=== PATIENT | male | born 1960 | race Caucasian/White ===

== ENCOUNTER 2019-10-11 18:37 | Inpatient (IN) | payer MEDICARE, BC ==
[~2019-10-11] VITALS: Ht 177.8 cm; Wt 106.8 kg
[2019-10-11] MEDS ORDERED: ACETAMINOPHEN 325 MG TABLET. PO ONE (19:30)
[2019-10-11] MEDS ORDERED: IV NORMAL SALINE 500ML BAG 500 ML IV ONE (19:30)
[2019-10-11] MEDS ORDERED: diphenhydrAMINE 50 MG/ML VIAL IVP ONE (19:30)
--- NOTE | 2019-10-11 19:37 | PHYS DOC ---
Past Medical History Past Medical History: Renal Disease Additional Past Medical Histor: HX OF 2 KIDNEY TRANSPLANTS Past Medical History Prostate cancer, end-stage renal disease, renal transplant Past Surgical History: No Surgical History Additional Past Surgical Histo: Ileal conduit construction, exploratory laparotomy, renal transplant x2 Smoking Status: Never Smoker Alcohol Use: Heavy General Adult EDM: Chief Complaint: FEVER HPI: HPI: Patient is a 59 year old male who presents with fever. Patient reports that fo r the last 2 days he has felt poorly. He thinks it started on Tuesday evening but definitely by Tuesday he was experiencing chills generalized muscle aches and weakness with a decrease in appetite. He reports that about 3 weeks ago he was in [facility] when he became uroseptic and was treated for 3 days with IV antibiotics and released. Patient reports he took a 10-day course of antibiotics. Patient reports he has never been contacted by that facility since discharge. Patient reports he does have some chest discomfort that started around noon today. He describes it as a tightness across his chest that he states he has never had before. He denies any shortness of breath, cough, change in smell or taste sore throat or runny nose. He also denied any abdominal pain, back pain diarrhea, melena or hematochezia, hematemesis. Patient also denied any new rashes. Review of Systems: Review of Systems: Constitutional: See HPI [] Eyes: Denies change in visual acuity. [] HENT: Denies nasal congestion or sore throat. [] Respiratory: Denies cough or shortness of breath. [] Cardiovascular: See HPI. [] GI: Denies abdominal pain, nausea, vomiting, bloody stools or diarrhea. [] : Denies dysuria. [] Musculoskeletal: Denies back pain or joint pain. [] Integument: Denies rash. [] Neurologic: Denies headache, focal weakness or sensory changes. [] Endocrine: Denies polyuria or polydipsia. [] Lymphatic: Denies swollen glands. [] Psychiatric: Denies depression or anxiety. [] Heart Score: Risk Factors: Risk Factors: DM, Current or recent (<one month) smoker, HTN, HLP, family history of CAD, obesity. Risk Scores: Score 0 - 3: 2.5% MACE over next 6 weeks - Discharge Home Score 4 - 6: 20.3% MACE over next 6 weeks - Admit for Clinical Observation Score 7 - 10: 72.7% MACE over next 6 weeks - Early Invasive Strategies Physical Exam: PE: Constitutional: Well developed, well nourished, no acute distress, non-toxic appearance. [] HENT: Normocephalic, atraumatic, bilateral external ears normal, oropharynx moist, no oral exudates, nose normal. [] Eyes: PERRLA, EOMI, conjunctiva normal, no discharge. [] Neck: Normal range of motion, no tenderness, supple, no stridor. No bruit, no 3 cm of JVD at 60 degrees [] Cardiovascular:Heart rate regular rhythm, grade 2/6 systolic murmur, no shift of PMI, pulses 1 out of 2 of the dorsalis pedis bilaterally [] Lungs & Thorax: Bilateral breath sounds clear to auscultation [] Abdomen: Bowel sounds normal, soft, no tenderness, no masses, no pulsatile masses. Ileal conduit bag in the left lower quadrant full of clear appearing urine.[] Skin: Warm, dry, no erythema, no rash. [] Back: No tenderness, no CVA tenderness. [] Extremities: No tenderness, no cyanosis, no clubbing, ROM intact, symmetric pitting edema bilaterally [] Neurologic: Alert and oriented X 3, normal motor function, normal sensory function, no focal deficits noted. [] Psychologic: Affect normal, judgement normal, mood normal. [] Current Patient Data: Vital Signs: Vital Signs Date Time Temp Pulse Resp B/P (MAP) Pulse Ox O2 Delivery O2 Flow Rate FiO2 10/11/19 19:05 102.0 98 20 175/85 (115) 98 Room Air 102.0 EKG: EKG: Heart rate 94 bpm, possible left atrial enlargement, normal axis, normal intervals, abnormal ECG [] Radiology/Procedures: Radiology/Procedures: [] Course & Med Decision Making: Course & Med Decision Making Pertinent Labs and Imaging studies reviewed. (See chart for details) 2126-the patient was seen and reevaluated. I discussed the case with the admitting physician. I discussed all pertinent CT, x-ray, laboratory and history and physical data. [] Dragon Disclaimer: Dragon Disclaimer: This electronic medical record was generated, in whole or in part, using a voice recognition dictation system. Departure Departure Impression: Primary Impression: Acute PN (pyelonephritis) Additional Impressions: SIRS (systemic inflammatory response syndrome) Renal transplant recipient Disposition: ADMITTED INPATIENT Condition: GUARDED Referrals: UNKNOWN PCP NAME (PCP) Justicifation of Admission Dx: Justifications for Admission: Justification of Admission Dx: Yes Sepsis: Bacteremia VERONA TORRES MD Oct 11, 2019 19:37
--- NOTE | 2019-10-11 20:14 | RAD ---
Single view chest dated 10/11/2019. COMPARISON: None. Clinical data indication: Chest pain. FINDINGS: single upright portable exam performed. Heart and mediastinal contours within normal limits. There is some patchy airspace disease at both lung bases. There is also some soft tissue density at the medial right lung apex. Calcified granuloma the right mid zone. No pleural effusion or pneumothorax. IMPRESSION: 1. Patchy bibasilar airspace disease, atelectasis versus early pneumonia. 2. Soft tissue density at the medial right apex most likely represents vascular shadow, although an underlying mass or pleural thickening is not excluded. Suggest a follow-up PA and lateral exam for better evaluation. Electronically signed by: Victor Manuel Hinton MD (10/11/2019 8:10 PM) MAIA
[2019-10-11 20:16] LABS: BILIRUBIN,URINE NEGATIVE (NEG); CLARITY,URINE CLEAR; COLOR,URINE YELLOW; NITRITE,URINE POSITIVE (NEG); PROTEIN,URINE 30 mg/dL (NEG-TRACE); UROBILINOGEN,URINE 0.2 mg/dL (0.2 mg/dL)
[2019-10-11 20:20] LABS: BACTERIA,URINE MANY /HPF (0-FEW); SQUAMOUS EPITHELIAL CELL,UR FEW /LPF; WBC,URINE 20-40 /HPF (0-4)
[2019-10-11 20:25] LABS: BASO % 0 % (0-3); EOS % 0 % (0-3); HEMATOCRIT 38.6 % (39.0-53.0); HEMOGLOBIN 12.9 g/dL (13.0-17.5); LYMPH # 0.4 x10^3/uL (1.0-4.8); LYMPH % 6 % (24-48); MEAN CORPUSCULAR HEMOGLOBIN 30 pg (25-35); MEAN CORPUSCULAR HGB CONC 33 g/dL (31-37); MEAN CORPUSCULAR VOLUME 90 fL (79-100); MONO # 0.6 x10^3/uL (0.0-1.1); MONO % 8 % (0-9); NEUT # 6.5 x10^3/uL (1.8-7.7); NEUT % 86 % (31-73); PLATELET COUNT 189 x10^3/uL (140-400); RED BLOOD COUNT 4.27 x10^6/uL (4.30-5.70); RED CELL DISTRIBUTION WIDTH 13.7 % (11.5-14.5); WHITE BLOOD COUNT 7.6 x10^3/uL (4.0-11.0)
[2019-10-11 20:36] LABS: CALCIUM 9.1 mg/dL (8.5-10.1); CREATININE 1.6 mg/dL (0.7-1.3); GFR 44.5; POTASSIUM 4.9 mmol/L (3.5-5.1)
[2019-10-11 20:40] LABS: ALBUMIN 3.3 g/dL (3.4-5.0); ALBUMIN/GLOBULIN RATIO 0.9 (1.0-1.7); TOTAL BILIRUBIN 0.7 mg/dL (0.2-1.0); TOTAL PROTEIN 7.1 g/dL (6.4-8.2)
[2019-10-11 20:56] LABS: PROTHROMBIN TIME PATIENT 14.6 SEC (11.7-14.0)
[2019-10-11 20:58] LABS: % BANDS 7 % (0-9); % LYMPHS 5 % (24-48); % MONOS 5 % (0-10); % SEGS 83 % (35-66); PLT ESTIMATE ADEQUATE (ADEQUATE)
--- NOTE | 2019-10-11 20:58 | RAD ---
Exam: CT of abdomen and pelvis without contrast INDICATION: Fever with history of ileal conduit TECHNIQUE: Sequential axial images through the abdomen and pelvis obtained without IV contrast. Sagittal and coronal reformatted images were reconstructed from the axial data and reviewed. Comparisons: None FINDINGS: Heart size is normal. No pericardial strandy opacities at the left lung base likely atelectasis. No pleural effusion. Evaluation of the solid organs is limited secondary to noncontrast technique. Liver, spleen, pancreas, gallbladder and adrenals are unremarkable. Left kidney is markedly atrophic. Right kidney is absent. There is a left lower quadrant transplant kidney which demonstrates mild hydronephrosis and perinephric stranding. No hydroureter is identified. Large bowel demonstrate diverticulosis of the sigmoid colon. Gastric banding device noted at the stomach. Postsurgical changes of ileal conduit is seen. No free intra-abdominal air or fluid. No obstruction. Abdominal aorta has a normal course and caliber. No enlarged intra-abdominal lymph nodes are identified. No suspicious osseous lesions or acute fractures. IMPRESSION: Mild left-sided lower quadrant transplant kidney hydronephrosis and perinephric stranding. An obstructing stone is not identified. Consider ultrasound for further evaluation. Exposure: One or more of the following in the visualized dose reduction techniques were utilized for this examination: 1. Automated exposure control 2. Adjustment of the MA and/or KV according to patient size 3. Use of iterative of reconstructive technique Electronically signed by: Justice Flynn MD (10/11/2019 8:55 PM) [id number]
[2019-10-11 21:05] LABS: D-DIMER 0.27 ug/mlFEU (0.00-0.50)
[2019-10-11] MEDS ORDERED: IV NORMAL SALINE 1000ML BAG 1,000 ML IV SCH (21:45)
[2019-10-11] MEDS ORDERED: ACETAMINOPHEN 325 MG TABLET. PO PRN (21:45)
[2019-10-12] VITALS (8 sets, daily range): BP systolic 118–173; BP diastolic 59–83
[2019-10-12] MEDS ORDERED: TACR1CAP2 PO (00:50)
[2019-10-12] MEDS ORDERED: TACR1CAP5 PO (00:50)
[2019-10-12] MEDS ORDERED: VENL37.57 PO (00:50)
[2019-10-12] MEDS ORDERED: METO-239 PO (01:38)
[2019-10-12] MEDS ORDERED: ACET-1797 PO (01:38)
[2019-10-12] MEDS ORDERED: MYCO180T PO (01:38)
[2019-10-12] MEDS ORDERED: ATOR10TA60 PO (01:38)
[2019-10-12] MEDS ORDERED: FAMO20TA5 PO (01:38)
[2019-10-12] MEDS ORDERED: APIX5TAB PO (01:38)
[2019-10-12] MEDS ORDERED: MELA3TAB4 PO (01:38)
[2019-10-12] MEDS ORDERED: ENOXAPARIN 40 MG/0.4 ML SYRINGE. SQ SCH (10:00)
--- NOTE | 2019-10-12 10:01 | EKG ---
[facility] [address] [place] [address] Test Date: 2019-10-11 Test Time: 19:49:50 Pat Name: XOCHITL BAEZ Department: Room: Gender: M Bilingual Recruiter: : [id number] Requested By: VERONA TORRES Order Number: [id number] Reading MD: Measurements Intervals [place] Rate: 94 P: 40 PA: 134 QRS: 9 QRSD: 90 T: 25 QT: 324 QTc: 410 Interpretive Statements SINUS RHYTHM LEFT ATRIAL ABNORMALITY ABNORMAL ECG RI6.01 No previous ECG available for comparison
[2019-10-12] MEDS: FAMOTIDINE 20 MG TABLET. PO SCH ×2 (10:21→21:06)
[2019-10-12] MEDS: APIXABAN 5 MG TABLET. PO SCH ×2 (10:22→21:07)
[2019-10-12] MEDS: VENLAFAXINE XR 37.5 MG CAP.ER.24H. PO SCH (10:22)
[2019-10-12] MEDS: MYCOPHENOLATE ACID 180 MG TABLET.DR. PO SCH ×2 (10:23→21:07)
[2019-10-12] MEDS: TACROLIMUS 0.5 MG CAPSULE. PO SCH ×2 (10:24→18:09)
[2019-10-12] MEDS: METOPROLOL SUCC 24HR ER 50 MG TAB.ER.24H. PO SCH (10:24)
--- NOTE | 2019-10-12 11:34 | PDOC ---
Infectious Disease Note Vital Sign Vital Signs Vital Signs Date Time Temp Pulse Resp B/P (MAP) Pulse Ox O2 Delivery O2 Flow Rate FiO2 10/12/19 11:00 98.6 97 19 173/83 (113) 97 Room Air 98.6 Labs Lab Laboratory Tests Test 10/11/19 20:10 10/11/19 20:12 Urine Collection Type Unknown Urine Color Yellow Urine Clarity Clear Urine pH 6.0 (<5.0-8.0) Urine Specific [place] 1.010 (1.000-1.030) Urine Protein 30 mg/dL (NEG-TRACE) Urine Glucose (UA) Negative mg/dL (NEG) Urine Ketones (Stick) Negative mg/dL (NEG) Urine Blood Moderate (NEG) Urine Nitrite Positive (NEG) Urine Bilirubin Negative (NEG) Urine Urobilinogen Dipstick 0.2 mg/dL (0.2 mg/dL) Urine Leukocyte Esterase Large (NEG) Urine RBC 6-10 /HPF (0-2) Urine WBC 20-40 /HPF (0-4) Urine Squamous Epithelial Cells Few /LPF Urine Bacteria Many /HPF (0-FEW) White Blood Count 7.6 x10^3/uL (4.0-11.0) Red Blood Count 4.27 x10^6/uL (4.30-5.70) Hemoglobin 12.9 g/dL (13.0-17.5) Hematocrit 38.6 % (39.0-53.0) Mean Corpuscular Volume 90 fL (79-100) Mean Corpuscular Hemoglobin 30 pg (25-35) Mean Corpuscular Hemoglobin Concent 33 g/dL (31-37) Red Cell Distribution Width 13.7 % (11.5-14.5) Platelet Count 189 x10^3/uL (140-400) Neutrophils (%) (Auto) 86 % (31-73) Lymphocytes (%) (Auto) 6 % (24-48) Monocytes (%) (Auto) 8 % (0-9) Eosinophils (%) (Auto) 0 % (0-3) Basophils (%) (Auto) 0 % (0-3) Neutrophils # (Auto) 6.5 x10^3/uL (1.8-7.7) Lymphocytes # (Auto) 0.4 x10^3/uL (1.0-4.8) Monocytes # (Auto) 0.6 x10^3/uL (0.0-1.1) Eosinophils # (Auto) 0.0 x10^3/uL (0.0-0.7) Basophils # (Auto) 0.0 x10^3/uL (0.0-0.2) Segmented Neutrophils % 83 % (35-66) Band Neutrophils % 7 % (0-9) Lymphocytes % 5 % (24-48) Monocytes % 5 % (0-10) Platelet Estimate Adequate (ADEQUATE) Prothrombin Time 14.6 SEC (11.7-14.0) Prothromb Time International Ratio 1.2 (0.8-1.1) Activated Partial Thromboplast Time 42 SEC (24-38) D-Dimer (Teresa) 0.27 ug/mlFEU (0.00-0.50) Sodium Level 138 mmol/L (136-145) Potassium Level 4.9 mmol/L (3.5-5.1) Chloride Level 103 mmol/L (98-107) Carbon Dioxide Level 26 mmol/L (21-32) Anion Gap 9 (6-14) Blood Urea Nitrogen 20 mg/dL (8-26) Creatinine 1.6 mg/dL (0.7-1.3) Estimated GFR (Cockcroft-Gault) 44.5 BUN/Creatinine Ratio 13 (6-20) Glucose Level 111 mg/dL (70-99) Lactic Acid Level 0.8 mmol/L (0.4-2.0) Calcium Level 9.1 mg/dL (8.5-10.1) Total Bilirubin 0.7 mg/dL (0.2-1.0) Aspartate Amino Transf (AST/SGOT) 22 U/L (15-37) Alanine Aminotransferase (ALT/SGPT) 21 U/L (16-63) Alkaline Phosphatase 88 U/L (46-116) Troponin I Quantitative < 0.017 ng/mL (0.000-0.055) Total Protein 7.1 g/dL (6.4-8.2) Albumin 3.3 g/dL (3.4-5.0) Albumin/Globulin Ratio 0.9 (1.0-1.7) Objective Assessment Patient seen consult dictated Plan Plan of Care / NADER KOROMA MD Oct 12, 2019 11:34
--- NOTE | 2019-10-12 11:37 | SSS ---
ADMIT DATE: 10/12/2019 CHIEF COMPLAINT: Urinary symptoms, fever. HISTORY OF PRESENT ILLNESS: The patient is a pleasant 59-year-old male who has had 2 renal transplants in the past. He also has a history of bladder cancer and has ileal conduit to his left lower quadrant abdomen. Basically, he presented with fevers, was noted to have a UTI. He was admitted overnight. This morning, we ordered some IV antibiotics and IV fluids. He looks great clinically. He wants to go home. We have a COVID test pending. I am going to let him go this afternoon if his COVID is negative. PAST MEDICAL HISTORY: Renal transplant x 2, bladder cancer, prostate cancer, ileal conduit, exploratory laparotomy. ALLERGIES: None. FAMILY HISTORY: Diabetes. SOCIAL HISTORY: He does not drink, smoke or take drugs. He is retired. MEDICATIONS: Reviewed, please refer to the MRAD. REVIEW OF SYSTEMS: GENERAL: No history of weight change, weakness or fevers. SKIN: No bruising, hair changes or rashes. EYES: No blurred, double or loss of vision. NOSE AND THROAT: No history of nosebleeds, hoarseness or sore throat. HEART: No history of palpitations, chest pain or shortness of breath on exertion. LUNGS: Denies cough, hemoptysis, wheezing or shortness of breath. GASTROINTESTINAL: Denies changes in appetite, nausea, vomiting, diarrhea or constipation. GENITOURINARY: No history of frequency, urgency, hesitancy or nocturia. NEUROLOGIC: Denies history of numbness, tingling, tremor or weakness. PSYCHIATRIC: No history of panic, anxiety or depression. ENDOCRINE: No history of heat or cold intolerance, polyuria or polydipsia. EXTREMITIES: Denies muscle weakness, joint pain, pain on walking or stiffness. PHYSICAL EXAMINATION: VITALS: Within normal limits and are stable. GENERAL: No apparent distress. Alert and oriented. HEENT: Normal cephalic atraumatic, external auditory canals are patent. Eyes: Extraocular muscles are intact, pupils are equally round and reactive to light and accommodation. MUSCULOSKELETAL: Well developed, well nourished, good range of motion. ENDOCRINE: No thyromegaly was palpated. LYMPHATICS: No cervical chain or axillary nodes were noted. HEMATOPOIETIC: No bruising. NECK: Supple, no JVD, no thyromegaly was noted. LUNGS: Clear to auscultation in all lung rober[place] without rhonchi or wheezing. HEART: RRR, S1, S2 present. Peripheral pulses intact, no obvious murmurs were noted. ABDOMEN: He has got ileal conduit on his left lower quadrant. EXTREMITIES: Without any cyanosis, clubbing, or edema. Pedal pulses intact, Homans sign is negative. NEUROLOGIC: Normal speech, normal tone. A and O x 3, moves all extremities, no obvious focal deficits. PSYCHIATRIC: Normal affect, normal mood. Stable. SKIN: No ulcerations or rashes, good skin turgor, no jaundice. VASCULAR: Good capillary refill, neurovascular bundle appears to be intact. ASSESSMENT AND PLAN: Resolving urinary tract infection and pyelonephritis in a middle-aged male who has history of prostate and bladder cancer with ileal conduit. Clinically, he looks great. I am going to let him go this afternoon if his COVID testing is negative. I discussed the case with his son and the nurse. We are going to give some IV fluids and IV Levaquin for now. I also left a prescription for p.o. Levaquin 500 mg p.o. b.i.d. for 14 days. DISPOSITION: Home. ACTIVITY: As tolerated. DIET: Low sodium. MEDICATIONS: Please see the MRAD. TOTAL TIME: 34 minutes. BI ARIAS DO DR: MONIK/jamir JOB#: [id number] / [id number]
--- NOTE | 2019-10-12 11:49 | NUR ---
Patient has a positive blood culture, gram negative rods, 1 in 4 bottles, [address] Davalos (ID) notified of result at [phone], will also notify hospitalist.
[2019-10-12] MEDS: IV NORMAL SALINE 1000ML BAG 1,000 ML IV SCH (13:27)
[2019-10-12] MEDS: PIPERACILLIN/TAZOBACTAM 3.375 GM in IV NORMAL SALINE 50ML 50 ML IV SCH ×3 (13:28→23:34)
--- NOTE | 2019-10-12 14:00 | NUR ---
Patient's right AC IV access was leaking and was discontinued. This nurse attempted 1x to put an IV but failed, another RN and nurse discharge tried but patient was a hard stick. IV was inserted by anesthesia per MD order.
--- NOTE | 2019-10-12 14:54 | CONS ---
DATE OF CONSULTATION: 10/12/2019 REQUESTING PHYSICIAN: Homero Elizondo MD REASON FOR CONSULTATION: Pyelonephritis in a kidney transplant patient. HISTORY OF PRESENT ILLNESS: This is a 59-year-old gentleman with history of kidney transplant actually twice, one 14 years ago and the most recent one 4 years ago. The patient also has had bladder cancer and prostate cancer, hence a cystectomy done and has a ileal conduit. The patient came in with fever and chills started a couple of days ago. The patient was noted to have 102 fever here. The patient was given a dose of Levaquin and consult has been requested. The patient denies any nausea, vomiting, or diarrhea. Denies any chest pain, shortness of breath, or abdominal pain. Because of the fever, he came in to have a COVID rule out, that is pending. PAST MEDICAL HISTORY: Positive for, as I mentioned kidney transplant 14 years ago and then 4 years ago. The patient has bladder cancer and prostate cancer, hence a cystectomy done and a ileal conduit. The patient also has prostate removal done, hyperlipidemia, atrial fibrillation, ablation done in March, gastroesophageal reflux disease, history of depression. SOCIAL HISTORY: Negative for smoking. He does drink about 3 beers a night. No drug use. ALLERGIES: No known drug allergies. CURRENT MEDICATIONS: Reviewed. The patient is on levofloxacin, tacrolimus, mycophenolate. ROS : pt does have chills, no n/v/d/sob/cp/ PHYSICAL EXAMINATION: GENERAL: Alert and oriented gentleman, not in distress. VITAL SIGNS: Stable with a T-max 102, pulse 97, respirations 19, blood pressure 173/83. HEENT: Both pupils are round and reacting. No conjunctival lesion, no lesion in the mouth. NECK: Supple, no JVP, no lymphadenopathy. LUNGS: Clear. HEART: S1, S2 regular. ABDOMEN: Soft, nontender, no organomegaly. EXTREMITIES: No edema, cyanosis. SKIN: Unremarkable. NEUROLOGIC: The patient is alert, awake and appropriate. No focal neurologic deficit. There is no CVA tenderness. LABORATORY DATA: White count is 7.6, hemoglobin 12.9, and platelets are normal. BUN and creatinine is 20 and 1.6. Lactic acid is 0.8. Urinalysis showed 20-40 wbc's, 6-10 rbc's, nitrite positive. Abdominal CT showed perinephric stranding. Chest x-ray showed patchy bibasilar airspace disease, atelectasis versus early pneumonia, soft tissue density in the medial right apex. IMPRESSION: 1. Fever and chills. In fact, at the time of my interview, the patient had some chills. 2. Urinary tract infection with pyelonephritis. 3. Immunosuppression from medication after kidney transplant. 4. Similar episode 2 months ago as he was visiting in [place]. RECOMMENDATIONS: We will change Levaquin to Zosyn. We will follow the urine and blood culture, supportive care and continue to follow. Thank you very much, Dr. Elizondo, for giving me the opportunity to participate in this patient's care. NADER KOROMA MD DR: MIKE/jamir JOB#: [id number] / [id number] STEVEN
--- NOTE | 2019-10-12 16:23 | NUR ---
Patient had an episode of fever 102.9 F, tylenol given per order, Dr. Davalos updated, no new orders received.
[2019-10-12] MEDS: ATORVASTATIN CALCIUM 10 MG TABLET. PO SCH (21:06)
[2019-10-13] MEDS: IV NORMAL SALINE 1000ML BAG 1,000 ML IV SCH ×2 (00:49→14:46)
[2019-10-13 03:10] VITALS: BP 128/61
[2019-10-13] MEDS: PIPERACILLIN/TAZOBACTAM 3.375 GM in IV NORMAL SALINE 50ML 50 ML IV SCH ×3 (06:24→17:32)
[2019-10-13 07:00] VITALS: BP 132/70
[2019-10-13] MEDS: VENLAFAXINE XR 37.5 MG CAP.ER.24H. PO SCH (09:08)
[2019-10-13] MEDS: TACROLIMUS 0.5 MG CAPSULE. PO SCH ×2 (09:08→17:32)
[2019-10-13] MEDS: FAMOTIDINE 20 MG TABLET. PO SCH ×2 (09:08→22:15)
[2019-10-13] MEDS: APIXABAN 5 MG TABLET. PO SCH ×2 (09:09→22:15)
[2019-10-13] MEDS: METOPROLOL SUCC 24HR ER 50 MG TAB.ER.24H. PO SCH (09:09)
[2019-10-13] MEDS: MYCOPHENOLATE ACID 180 MG TABLET.DR. PO SCH ×2 (09:09→22:15)
[2019-10-13 11:00] VITALS: BP 115/57
--- NOTE | 2019-10-13 12:02 | PDOC ---
Infectious Disease Note Subjective Subjective Feeling better, no further fever or chills Denies pain/N/V/SOA ROS ROS as mentioned above Vital Sign Vital Signs Vital Signs Date Time Temp Pulse Resp B/P (MAP) Pulse Ox O2 Delivery O2 Flow Rate FiO2 10/13/19 11:00 97.8 78 18 115/57 (76) 97 Room Air 97.8 Physical Exam PHYSICAL EXAM GENERAL: Lying down, alert, relaxed appearance HEENT: Pupils are round and reacting. No conjunctival lesion, no lesion in the mouth. NECK: Supple, no JVP, no lymphadenopathy. LUNGS: Clear. HEART: S1, S2 regular. ABDOMEN: Obese, BS present, soft, nontender. ileal-conduit, urine clear yellow EXTREMITIES: No edema, cyanosis. SKIN: without rash NEUROLOGIC: Alert, oriented x 3, nonfocal PIV Labs Lab CT A/P Left kidney is markedly atrophic. Right kidney is absent. There is a left lower quadrant transplant kidney which demonstrates mild hydronephrosis and perinephric stranding. No hydroureter is identified. Large bowel demonstrate diverticulosis of the sigmoid colon. Gastric banding device noted at the stomach. Postsurgical changes of ileal conduit is seen. No free intra-abdominal air or fluid. No obstruction. Micro /. BLOOD CULTURE Final GRAM NEGATIVE RODS, IN 1 OF 4 BOTTLES, TWO SETS DRAWN. CALLED TO BARBARA SALAS RN ON 6S AT 11:45 ON 10/12/19 [facility] Objective Assessment GNR bacteremia with sepsis, POA Fever and chills., improved Urinary tract infection with pyelonephritis, ileal conduit present. Immunosuppression from medication after kidney transplant. Similar episode 2 months ago as he was visiting in [place]. Renal insufficiency Plan Plan of Care Continue Zosyn. Follow- up cultures. GNR ID/suspectibilites still pending CBC and BMP in am COVID pending Attending Co-Sign The patient was seen and interviewed as well as examined at the bedside. The chart was reviewed. The case was discussed. Agree with the plan of care. JOSE DIALLO APRN Oct 13, 2019 12:02 NADER KOROMA MD Oct 13, 2019 12:55
[2019-10-13] MEDS: ANTI-COAG MONITOR BY PHARMACY. MC PRN (14:20)
[2019-10-13 15:00] VITALS: BP 109/58
--- NOTE | 2019-10-13 15:12 | PDOC ---
[employer] PROGRESS NOTE Date of Service DOS: DATE: 10/13/19 TIME: 15:03 Chief Complaint Chief Complaint Abnormal chest x-ray Sepsis - Fever and chills - peaked 102.9F Urinary tract infection with pyelonephritis Immunosuppression S/p kidney transplant. S/p ileoconduit Bacteremia - gram negative rods, on zosyn History of Present Illness History of Present Illness Mr Sage is a 59-year-old male w/ PMHx afib s/p ablation 03/2019, GERD, depression, kidney transplant x2 one 14 years ago and the most recent one 4 years ago, bladder cancer and prostate cancer s/p cystectomy and ileal conduit. The patient came in with fever and chills started a couple of days ago. The patient was noted to have 102.9 F fever here. The patient was given a dose of Levaquin and admitted with COVID 19 testing and ID consultation. CXR showed patchy bibasilar airspace disease, atelectasis versus early pneumonia, soft tissue density in the medial right apex. Afebrile today. Seen ambulating in his room. Notified of positive blood cultures. He is not significantly short of breath. He is amenable to changing his ileoconduit ostomy bag daily and increasing his fluid intake. He notes that when he had E. coli bacteremia and [place] previously he took 10 days of Levaquin. Vitals/I&O Vitals/I&O: Vital Signs Date Time Temp Pulse Resp B/P (MAP) Pulse Ox O2 Delivery O2 Flow Rate FiO2 10/13/19 11:00 97.8 78 18 115/57 (76) 97 Room Air 97.8 I & O 10/12/19 10/12/19 10/13/19 15:00 23:00 07:00 Intake Total 360 ml 400 ml 240 ml Output Total 900 ml 1200 ml Balance 360 ml -500 ml -960 ml Physical Exam Physical Exam: GENERAL: Lying down, alert, relaxed appearance HEENT: Pupils are round and reacting. No conjunctival lesion, no lesion in the mouth. NECK: Supple, no JVP, no lymphadenopathy. LUNGS: Clear. HEART: S1, S2 regular. ABDOMEN: Obese, BS present, soft, nontender. ileal-conduit, urine clear yellow EXTREMITIES: No edema, cyanosis. SKIN: without rash NEUROLOGIC: Alert, oriented x 3, nonfocal PIV Assessment and Plan Assessmemt and Plan Problems Medical Problems: (1) Acute PN (pyelonephritis) Status: Acute (2) SIRS (systemic inflammatory response syndrome) Status: Acute Comment Review of Relevant I have reviewed the following items ophelia (where applicable) has been applied. Medications: Current Medications Medications (Trade) Dose Ordered Sig/Lino Route PRN Reason Start Time Stop Time Status Last Admin Dose Admin Atorvastatin Calcium (Lipitor) 10 mg HS PO 10/12/19 21:00 10/12/19 21:06 Tacrolimus (Prograf) 1 mg QEVNG PO 10/12/19 18:00 10/12/19 18:09 Info (Anti-Coagulation Monitoring By Pharmacy) 1 each PRN DAILY PRN MC SEE COMMENTS 10/13/19 11:00 10/13/19 14:20 Justicifation of Admission Dx: Justifications for Admission: Justification of Admission Dx: Yes Sepsis: Bacteremia ZHAO PHILLIPS MD Oct 13, 2019 15:12
[2019-10-13 19:05] VITALS: BP 133/74
[2019-10-13] MEDS: ATORVASTATIN CALCIUM 10 MG TABLET. PO SCH (22:15)
[2019-10-13 23:03] VITALS: BP 121/69
[2019-10-14] MEDS: PIPERACILLIN/TAZOBACTAM 3.375 GM in IV NORMAL SALINE 50ML 50 ML IV SCH ×3 (00:30→11:57)
[2019-10-14 04:04] LABS: BASO % 0 % (0-3); EOS # 0.1 x10^3/uL (0.0-0.7); EOS % 2 % (0-3); HEMATOCRIT 32.6 % (39.0-53.0); LYMPH # 0.5 x10^3/uL (1.0-4.8); LYMPH % 9 % (24-48); MEAN CORPUSCULAR HEMOGLOBIN 31 pg (25-35); MEAN CORPUSCULAR HGB CONC 34 g/dL (31-37); MEAN CORPUSCULAR VOLUME 91 fL (79-100); MONO # 0.9 x10^3/uL (0.0-1.1); MONO % 16 % (0-9); NEUT # 4.4 x10^3/uL (1.8-7.7); NEUT % 73 % (31-73); PLATELET COUNT 177 x10^3/uL (140-400); RED BLOOD COUNT 3.58 x10^6/uL (4.30-5.70); RED CELL DISTRIBUTION WIDTH 13.2 % (11.5-14.5)
[2019-10-14 04:18] LABS: CALCIUM 8.4 mg/dL (8.5-10.1); CREATININE 1.4 mg/dL (0.7-1.3); GFR 51.9; POTASSIUM 3.8 mmol/L (3.5-5.1)
[2019-10-14] MEDS: IV NORMAL SALINE 1000ML BAG 1,000 ML IV SCH (05:56)
[2019-10-14 07:00] VITALS: BP 112/58
[2019-10-14] MEDS: APIXABAN 5 MG TABLET. PO SCH (08:46)
[2019-10-14] MEDS: VENLAFAXINE XR 37.5 MG CAP.ER.24H. PO SCH (08:47)
[2019-10-14] MEDS: FAMOTIDINE 20 MG TABLET. PO SCH (08:47)
[2019-10-14] MEDS: MYCOPHENOLATE ACID 180 MG TABLET.DR. PO SCH (08:47)
[2019-10-14] MEDS: METOPROLOL SUCC 24HR ER 50 MG TAB.ER.24H. PO SCH (08:47)
[2019-10-14] MEDS: TACROLIMUS 0.5 MG CAPSULE. PO SCH (08:48)
[2019-10-14 11:00] VITALS: BP 117/63
--- NOTE | 2019-10-14 12:05 | PDOC ---
Infectious Disease Note Subjective Subjective Feels great Appetite good No further fever or chills ROS ROS as mentioned above Vital Sign Vital Signs Vital Signs Date Time Temp Pulse Resp B/P (MAP) Pulse Ox O2 Delivery O2 Flow Rate FiO2 10/14/19 08:47 112/55 10/14/19 08:30 Room Air 10/14/19 07:00 97.5 98 18 98 97.5 Physical Exam PHYSICAL EXAM GENERAL: Propped up in bed, alert and eating HEENT: No conjunctival lesion, no lesion in the mouth. NECK: Supple, no JVP, no lymphadenopathy. LUNGS: Clear. HEART: S1, S2 regular. ABDOMEN: Obese, BS present, soft, nontender. ileal-conduit, urine clear yellow EXTREMITIES: No edema, cyanosis. SKIN: without rash NEUROLOGIC: Alert, oriented x 3, nonfocal PIV Labs Lab Laboratory Tests Test 10/14/19 03:30 White Blood Count 6.0 x10^3/uL (4.0-11.0) Red Blood Count 3.58 x10^6/uL (4.30-5.70) Hemoglobin 11.0 g/dL (13.0-17.5) Hematocrit 32.6 % (39.0-53.0) Mean Corpuscular Volume 91 fL (79-100) Mean Corpuscular Hemoglobin 31 pg (25-35) Mean Corpuscular Hemoglobin Concent 34 g/dL (31-37) Red Cell Distribution Width 13.2 % (11.5-14.5) Platelet Count 177 x10^3/uL (140-400) Neutrophils (%) (Auto) 73 % (31-73) Lymphocytes (%) (Auto) 9 % (24-48) Monocytes (%) (Auto) 16 % (0-9) Eosinophils (%) (Auto) 2 % (0-3) Basophils (%) (Auto) 0 % (0-3) Neutrophils # (Auto) 4.4 x10^3/uL (1.8-7.7) Lymphocytes # (Auto) 0.5 x10^3/uL (1.0-4.8) Monocytes # (Auto) 0.9 x10^3/uL (0.0-1.1) Eosinophils # (Auto) 0.1 x10^3/uL (0.0-0.7) Basophils # (Auto) 0.0 x10^3/uL (0.0-0.2) Sodium Level 138 mmol/L (136-145) Potassium Level 3.8 mmol/L (3.5-5.1) Chloride Level 105 mmol/L (98-107) Carbon Dioxide Level 23 mmol/L (21-32) Anion Gap 10 (6-14) Blood Urea Nitrogen 18 mg/dL (8-26) Creatinine 1.4 mg/dL (0.7-1.3) Estimated GFR (Cockcroft-Gault) 51.9 Glucose Level 102 mg/dL (70-99) Calcium Level 8.4 mg/dL (8.5-10.1) Micro 8/6. Blood culture ANTIMICROBIAL SUSCEPTIBILITY Final Comment NEG MURTAZA 56 ESCHERICHIA COLI ANTIBIOTIC RESULT INTERPRETATION AMPICILLIN/SULBACTAM <=4/2 S AMIKACIN <=16 S AMPICILLIN <=8 S AMOXICILLIN/K CLAVULANATE <=8/4 S AZTREONAM <=4 S CEFTRIAXONE <=1 S CEFTAZIDIME <=1 S CEFOTAXIME <=2 S CEFOXITIN <=8 S CIPROFLOXACIN <=0.25 S CEFEPIME <=2 S CEFUROXIME <=4 S CEFTAZIDIME/AVIBACTAM <=4 S ERTAPENEM <=0.5 S GENTAMICIN <=2 S LEVOFLOXACIN <=0.5 S MEROPENEM <=1 S PIPERACILLIN/TAZOBACTAM <=8 S TRIMETHOPRIM/SULFAMETHOXAZOLE <=0.5/9.5 S TETRACYCLINE <=4 S TOBRAMYCIN <=2 S URINE CULTURE Preliminary Preliminary GREATER THAN 100,000 CFU/ML GRAM NEGATIVE RODS on 10/13/19 at 0848 FINAL ID= [ESCHERICHIA COLI] Objective Assessment GNR bacteremia with sepsis, POA. E. coli pansensitive Fever and chills., improved Urinary tract infection with pyelonephritis, ileal conduit present. E. coli Immunosuppression from medication after kidney transplant. Similar episode 2 months ago as he was visiting in [place]. Renal insufficiency Plan Plan of Care Zosyn, de-escalate soon Maintain hydration COVID still pending Attending Co-Sign The patient was seen and interviewed as well as examined at the bedside. The chart was reviewed. The case was discussed. Agree with the plan of care. JOSE DIALLO FUND MANAGER Oct 14, 2019 12:05 NADER KOROMA MD Oct 14, 2019 12:30
[2019-10-14] MEDS: ANTI-COAG MONITOR BY PHARMACY. MC PRN (12:23)
[2019-10-14] MEDS ORDERED: LEVO500T59 PO (12:31)
--- NOTE | 2019-10-14 12:41 | PDOC ---
[employer] PROGRESS NOTE Date of Service DOS: DATE: 10/14/19 TIME: 12:32 Chief Complaint Chief Complaint Abnormal chest x-ray Sepsis - Fever and chills - peaked 102.9F Urinary tract infection with pyelonephritis Immunosuppression S/p kidney transplant. S/p ileoconduit Bacteremia - gram negative rods, on zosyn History of Present Illness History of Present Illness Mr Sage is a 59-year-old male w/ PMHx afib s/p ablation 03/2019, GERD, depression, kidney transplant x2 one 14 years ago and the most recent one 4 years ago, bladder cancer and prostate cancer s/p cystectomy and ileal conduit. The patient came in with fever and chills started a couple of days ago. The patient was noted to have 102.9 F fever here. The patient was given a dose of Levaquin and admitted with COVID 19 testing and ID consultation. CXR showed patchy bibasilar airspace disease, atelectasis versus early pneumonia, soft tissue density in the medial right apex. 10/13: Afebrile today. Seen ambulating in his room. Notified of positive blood cultures. He is not significantly short of breath. He is amenable to changing his ileoconduit ostomy bag daily and increasing his fluid intake. He notes that when he had E. coli bacteremia and [facility] previously he took 10 days of Levaquin. E. coli positive blood, pansensitive. COVID-19 still pending. Afebrile feeling much better. Plan for discharge on 14 days of 500 mg Levaquin. Vitals/I&O Vitals/I&O: Vital Signs Date Time Temp Pulse Resp B/P (MAP) Pulse Ox O2 Delivery O2 Flow Rate FiO2 10/14/19 08:47 112/55 10/14/19 08:30 Room Air 10/14/19 07:00 97.5 98 18 98 97.5 I & O 10/13/19 10/13/19 10/14/19 15:00 23:00 07:00 Intake Total 1100 ml 960 ml Output Total 700 ml Balance 1100 ml -700 ml 960 ml Physical Exam Physical Exam: GENERAL: Propped up in bed, alert and eating HEENT: No conjunctival lesion, no lesion in the mouth. NECK: Supple, no JVP, no lymphadenopathy. LUNGS: Clear. HEART: S1, S2 regular. ABDOMEN: Obese, BS present, soft, nontender. ileal-conduit, urine clear yellow EXTREMITIES: No edema, cyanosis. SKIN: without rash NEUROLOGIC: Alert, oriented x 3, nonfocal PIV Labs Labs: Laboratory Tests Test 10/14/19 03:30 White Blood Count 6.0 x10^3/uL (4.0-11.0) Red Blood Count 3.58 x10^6/uL (4.30-5.70) Hemoglobin 11.0 g/dL (13.0-17.5) Hematocrit 32.6 % (39.0-53.0) Mean Corpuscular Volume 91 fL (79-100) Mean Corpuscular Hemoglobin 31 pg (25-35) Mean Corpuscular Hemoglobin Concent 34 g/dL (31-37) Red Cell Distribution Width 13.2 % (11.5-14.5) Platelet Count 177 x10^3/uL (140-400) Neutrophils (%) (Auto) 73 % (31-73) Lymphocytes (%) (Auto) 9 % (24-48) Monocytes (%) (Auto) 16 % (0-9) Eosinophils (%) (Auto) 2 % (0-3) Basophils (%) (Auto) 0 % (0-3) Neutrophils # (Auto) 4.4 x10^3/uL (1.8-7.7) Lymphocytes # (Auto) 0.5 x10^3/uL (1.0-4.8) Monocytes # (Auto) 0.9 x10^3/uL (0.0-1.1) Eosinophils # (Auto) 0.1 x10^3/uL (0.0-0.7) Basophils # (Auto) 0.0 x10^3/uL (0.0-0.2) Sodium Level 138 mmol/L (136-145) Potassium Level 3.8 mmol/L (3.5-5.1) Chloride Level 105 mmol/L (98-107) Carbon Dioxide Level 23 mmol/L (21-32) Anion Gap 10 (6-14) Blood Urea Nitrogen 18 mg/dL (8-26) Creatinine 1.4 mg/dL (0.7-1.3) Estimated GFR (Cockcroft-Gault) 51.9 Glucose Level 102 mg/dL (70-99) Calcium Level 8.4 mg/dL (8.5-10.1) Assessment and Plan Assessmemt and Plan Problems Medical Problems: (1) Acute PN (pyelonephritis) Status: Acute (2) SIRS (systemic inflammatory response syndrome) Status: Acute Comment Review of Relevant I have reviewed the following items ophelia (where applicable) has been applied. Justicifation of Admission Dx: Justifications for Admission: Justification of Admission Dx: Yes Sepsis: Bacteremia ZHAO PHILLIPS MD Oct 14, 2019 12:41
--- NOTE | 2019-10-14 12:43 | PDOC3 ---
Discharge Summary Visit Information Date of Admission: Oct 11, 2019 Date of Discharge: Oct 14, 2019 Admitting Diagnosis: Pyelonephritis Final Diagnosis Problems Medical Problems: (1) Acute PN (pyelonephritis) Status: Acute (2) SIRS (systemic inflammatory response syndrome) Status: Acute Brief Hospital Course Allergies Allergies Coded Allergies Type Severity Reaction Last Updated Verified No Known Drug Allergies 10/11/19 No Vital Signs Vital Signs Date Time Temp Pulse Resp B/P (MAP) Pulse Ox O2 Delivery O2 Flow Rate FiO2 10/14/19 08:47 112/55 10/14/19 08:30 Room Air 10/14/19 07:00 97.5 98 18 98 97.5 Lab Results Laboratory Tests Test 10/14/19 03:30 White Blood Count 6.0 x10^3/uL (4.0-11.0) Red Blood Count 3.58 x10^6/uL (4.30-5.70) Hemoglobin 11.0 g/dL (13.0-17.5) Hematocrit 32.6 % (39.0-53.0) Mean Corpuscular Volume 91 fL (79-100) Mean Corpuscular Hemoglobin 31 pg (25-35) Mean Corpuscular Hemoglobin Concent 34 g/dL (31-37) Red Cell Distribution Width 13.2 % (11.5-14.5) Platelet Count 177 x10^3/uL (140-400) Neutrophils (%) (Auto) 73 % (31-73) Lymphocytes (%) (Auto) 9 % (24-48) Monocytes (%) (Auto) 16 % (0-9) Eosinophils (%) (Auto) 2 % (0-3) Basophils (%) (Auto) 0 % (0-3) Neutrophils # (Auto) 4.4 x10^3/uL (1.8-7.7) Lymphocytes # (Auto) 0.5 x10^3/uL (1.0-4.8) Monocytes # (Auto) 0.9 x10^3/uL (0.0-1.1) Eosinophils # (Auto) 0.1 x10^3/uL (0.0-0.7) Basophils # (Auto) 0.0 x10^3/uL (0.0-0.2) Sodium Level 138 mmol/L (136-145) Potassium Level 3.8 mmol/L (3.5-5.1) Chloride Level 105 mmol/L (98-107) Carbon Dioxide Level 23 mmol/L (21-32) Anion Gap 10 (6-14) Blood Urea Nitrogen 18 mg/dL (8-26) Creatinine 1.4 mg/dL (0.7-1.3) Estimated GFR (Cockcroft-Gault) 51.9 Glucose Level 102 mg/dL (70-99) Calcium Level 8.4 mg/dL (8.5-10.1) Laboratory Tests Test 10/14/19 03:30 White Blood Count 6.0 x10^3/uL (4.0-11.0) Red Blood Count 3.58 x10^6/uL (4.30-5.70) Hemoglobin 11.0 g/dL (13.0-17.5) Hematocrit 32.6 % (39.0-53.0) Mean Corpuscular Volume 91 fL (79-100) Mean Corpuscular Hemoglobin 31 pg (25-35) Mean Corpuscular Hemoglobin Concent 34 g/dL (31-37) Red Cell Distribution Width 13.2 % (11.5-14.5) Platelet Count 177 x10^3/uL (140-400) Neutrophils (%) (Auto) 73 % (31-73) Lymphocytes (%) (Auto) 9 % (24-48) Monocytes (%) (Auto) 16 % (0-9) Eosinophils (%) (Auto) 2 % (0-3) Basophils (%) (Auto) 0 % (0-3) Neutrophils # (Auto) 4.4 x10^3/uL (1.8-7.7) Lymphocytes # (Auto) 0.5 x10^3/uL (1.0-4.8) Monocytes # (Auto) 0.9 x10^3/uL (0.0-1.1) Eosinophils # (Auto) 0.1 x10^3/uL (0.0-0.7) Basophils # (Auto) 0.0 x10^3/uL (0.0-0.2) Sodium Level 138 mmol/L (136-145) Potassium Level 3.8 mmol/L (3.5-5.1) Chloride Level 105 mmol/L (98-107) Carbon Dioxide Level 23 mmol/L (21-32) Anion Gap 10 (6-14) Blood Urea Nitrogen 18 mg/dL (8-26) Creatinine 1.4 mg/dL (0.7-1.3) Estimated GFR (Cockcroft-Gault) 51.9 Glucose Level 102 mg/dL (70-99) Calcium Level 8.4 mg/dL (8.5-10.1) Brief Hospital Course Mr Sage is a 59-year-old male w/ PMHx afib s/p ablation 03/2019, GERD, depression, kidney transplant x2 one 14 years ago and the most recent one 4 years ago, bladder cancer and prostate cancer s/p cystectomy and ileal conduit. The patient came in with fever and chills started a couple of days ago. The patient was noted to have 102.9 F fever here. The patient was given a dose of Levaquin and admitted with COVID 19 testing and ID consultation. CXR showed patchy bibasilar airspace disease, atelectasis versus early pneumonia, soft tissue density in the medial right apex. 10/13: Afebrile today. Seen ambulating in his room. Notified of positive blood cultures. He is not significantly short of breath. He is amenable to changing his ileoconduit ostomy bag daily and increasing his fluid intake. He notes that when he had E. coli bacteremia and [place] previously he took 10 days of Levaquin. E. coli positive blood, pansensitive. COVID-19 still pending. Afebrile feeling much better. Plan for discharge on 14 days of 500 mg Levaquin. Consults: ID Problem list: Abnormal chest x-ray Sepsis - Fever and chills - peaked 102.9F Urinary tract infection with pyelonephritis Immunosuppression S/p kidney transplant. S/p ileoconduit Bacteremia - gram negative rods, on zosyn - discharge on 14 days of levaquin Greater than 30 minutes spent on d/c home URINE CULTURE GREATER THAN 100,000 CFU/ML GRAM NEGATIVE RODS on 10/13/19 FINAL ID= [ESCHERICHIA COLI] FINAL ID= [ACINETOBACTER BAU/NOS GROUP] ESCHERICHIA COLI ACINETOBACTER BAU/NOS GROUP ANTIMICROBIAL SUSCEPTIBILITY Preliminary Comment NEG MURTAZA 56 ESCHERICHIA COLI ANTIBIOTIC RESULT INTERPRETATION AMPICILLIN/SULBACTAM <=4/2 S AMIKACIN <=16 S AMPICILLIN <=8 S AMOXICILLIN/K CLAVULANATE <=8/4 S AZTREONAM <=4 S CEFTRIAXONE <=1 S CEFTAZIDIME <=1 S CEFOTAXIME <=2 S CEFOXITIN <=8 S CIPROFLOXACIN <=0.25 S CEFEPIME <=2 S CEFUROXIME <=4 S CEFTAZIDIME/AVIBACTAM <=4 S ERTAPENEM <=0.5 S NITROFURANTOIN <=32 S GENTAMICIN <=2 S LEVOFLOXACIN <=0.5 S MEROPENEM <=1 S PIPERACILLIN/TAZOBACTAM <=8 S TRIMETHOPRIM/SULFAMETHOXAZOLE <=0.5/9.5 S TETRACYCLINE <=4 S TOBRAMYCIN <=2 S BLOOD CULTURE LC Final GRAM NEGATIVE RODS: FINAL ID= [ESCHERICHIA COLI] ANTIMICROBIAL SUSCEPTIBILITY Final Comment NEG MURTAZA 56 ESCHERICHIA COLI ANTIBIOTIC RESULT INTERPRETATION AMPICILLIN/SULBACTAM <=4/2 S AMIKACIN <=16 S AMPICILLIN <=8 S AMOXICILLIN/K CLAVULANATE <=8/4 S AZTREONAM <=4 S CEFTRIAXONE <=1 S CEFTAZIDIME <=1 S CEFOTAXIME <=2 S CEFOXITIN <=8 S CIPROFLOXACIN <=0.25 S CEFEPIME <=2 S CEFUROXIME <=4 S CEFTAZIDIME/AVIBACTAM <=4 S ERTAPENEM <=0.5 S GENTAMICIN <=2 S LEVOFLOXACIN <=0.5 S MEROPENEM <=1 S PIPERACILLIN/TAZOBACTAM <=8 S TRIMETHOPRIM/SULFAMETHOXAZOLE <=0.5/9.5 S TETRACYCLINE <=4 S TOBRAMYCIN <=2 S Discharge Information Condition at Discharge: Improved Follow Up: Weeks Disposition/Orders: D/C to Home Scheduled Apixaban (Eliquis) 5 Mg Tablet, 5 MG PO BID for AFIB, (Reported) Entered as Reported by: FAUSTINO MEJIA on 10/12/19137 Last Action: Continued on 10/12/19952 by LALA SALAS Atorvastatin Calcium (Atorvastatin Calcium) 10 Mg Tablet, 10 MG PO HS for FOR CHOLESTEROL, #30 Ref 0 (Reported) Entered as Reported by: FAUSTINO MEJIA on 10/12/19137 Last Action: Continued on 10/12/19952 by LALA SALAS Famotidine (Famotidine) 20 Mg Tablet, 20 MG PO BID for GERD, (Reported) Entered as Reported by: FAUSTINO MEJIA on 10/12/19137 Last Action: Continued on 10/12/19952 by LALA SALAS Levofloxacin (Levaquin) 500 Mg Tablet, 1 TAB PO DAILY for E. Coli bacteremia for 14 Days, #14 Ref 0 Prescribed by: ZHAO PHILLIPS MD on 10/14/19 1231 Melatonin (Melatonin) 3 Mg Tablet, 3 MG PO HS for sleep, (Reported) Entered as Reported by: FAUSTINO MEJIA on 10/12/19137 Last Action: New Order on 10/12/19137 by FAUSTINO MEJIA Metoprolol Succinate (Metoprolol Succinate ( Xl )) 25 Mg Tab.er.24h, 50 MG PO DAILY for FOR HYPERTENSION, #30 Ref 0 (Reported) Entered as Reported by: FAUSTINO MEJIA on 10/12/19137 Last Action: Continued on 10/12/19952 by LALA SALAS Mycophenolate Sodium (Myfortic) 180 Mg Tablet.dr, 3 TAB PO BID for KIDNEY TRANSPLANT, (Reported) Entered as Reported by: FAUSTINO MEJIA on 10/12/19137 Last Action: Continued on 10/12/19952 by LALA SALAS Tacrolimus (Prograf) 1 Mg Capsule, 2 MG PO DAILY for kidney transplant, (Reported) Entered as Reported by: FAUSTINO MEJIA on 10/12/1949 Last Action: Continued on 10/12/19952 by LALA SALAS Tacrolimus (Tacrolimus) 1 Mg Capsule, 1 MG PO QEVNG for kidney transplant, (Reported) Entered as Reported by: FAUSTINO MEJIA on 10/12/1949 Last Action: Continued on 10/12/19952 by LALA SALAS Venlafaxine Hcl (Venlafaxine Hcl Er) 37.5 Mg Cap.er.24h, 37.5 MG PO DAILY for mood, (Reported) Entered as Reported by: FAUSTINO MEJIA on 10/12/1949 Last Action: Continued on 10/12/19952 by LALA SALAS Scheduled PRN Acetaminophen/Diphenhydramine (Acetaminophen-Diphenhyd 500-25) 1 Each Tablet, 1 EACH PO PRN QHS PRN for INSOMNIA, (Reported) Entered as Reported by: FAUSTINO MEJIA on 10/12/19137 Last Action: New Order on 10/12/19137 by FAUSTINO MEJIA Justicifation of Admission Dx: Justifications for Admission: Justification of Admission Dx: Yes Sepsis: Bacteremia ZHAO PHILLIPS MD Oct 14, 2019 12:42
--- NOTE | 2019-10-14 13:49 | NUR ---
Discharge Note: XOCHITL [id number] [facility] Discharge instructions and discharge home medications reviewed with Patient and a copy given. All questions have been answered and understanding verbalized. The following instructions and handouts were given: discharge instructions, new prescription, education and follow up recommendations. Discontinued lines and drains: Peripheral IV discontinued intact. Patient discharged to Home or Self Care with Spouse via Ambulated off unit by [facility].
== END 2019-10-14 13:59 | disposition home or self-care (01) | DRG 871 ==
LOC: ER 18:37 → 6 SOUTH 21:32
PROVIDERS: ADMIT Family Medicine; ATTEND Family Medicine
DX: A41.51 Sepsis due to Escherichia coli [E. coli] (principal); J15.6 Pneumonia due to other Gram-negative bacteria; N10 Acute pyelonephritis; Z94.0 Kidney transplant status; J98.11 Atelectasis; E78.5 Hyperlipidemia, unspecified; I48.91 Unspecified atrial fibrillation; Z83.3 Family history of diabetes mellitus; Z85.46 Personal history of malignant neoplasm of prostate; Z85.51 Personal history of malignant neoplasm of bladder; F32.9 Major depressive disorder, single episode, unspecified; K21.9 Gastro-esophageal reflux disease without esophagitis; Z20.828 Contact with and (suspected) exposure to other viral communicable diseases; Z79.899 Other long term (current) drug therapy; N28.9 Disorder of kidney and ureter, unspecified; Z93.59 Other cystostomy status
CPT/HCPCS: 36415; 71045; 74176; 80048; 80053; 81001; 83605; 84484; 85007; 85025; 85379; 85610; 85730; 87040; 87077; 87086; 87186; 87205; 93005; 96365; 96366; 96375; J1200; J1956; J2543; J7030; J7040; J7507; 99285-25; G0378; U0003-CS